=== PATIENT | female | born 1985 | race Caucasian/White ===

== ENCOUNTER 2024-03-03 05:59 | Emergency (ER) | payer OTHER ==
[~2024-03-03] VITALS: Ht 157.5 cm; Wt 79.8 kg
[2024-03-03 07:41] LABS: BASO % 0.3 % (0.0-1.0); EOS # 0.1 10^3/uL (0.0-0.5); EOS % 0.6 % (0.0-3.0); HEMATOCRIT 40.6 % (36.0-47.0); HEMOGLOBIN 14.5 g/dl (12.0-15.5); LYMPH # 1.5 10^3/uL (1.5-5.0); LYMPH % 18.8 % (24.0-44.0); MEAN CORPUSCULAR HEMOGLOBIN 32.2 pg (27.0-33.0); MEAN CORPUSCULAR HGB CONC 35.7 g/dl (32.0-36.5); MEAN CORPUSCULAR VOLUME 90.2 fl (80.0-96.0); MONO # 0.4 10^3/uL (0.0-0.8); MONO % 4.8 % (2.0-8.0); NEUTROPHILS % 75.1 % (36.0-66.0); PLATELET COUNT, AUTOMATED 385 10^3/uL (150-450)
[2024-03-03] MEDS: diphenhydrAMINE 25MG CAP PO ONE (08:07)
[2024-03-03 08:12] LABS: HCG, SERUM QUALITATIVE NEGATIVE (NEGATIVE)
[2024-03-03 08:15] LABS: ALBUMIN 3.9 G/DL (3.2-5.2); ALKALINE PHOSPHATASE 152 U/L (46-116); ALT/SGPT 16 U/L (7.0-40); AST/SGOT 18 U/L (<34); BILIRUBIN,DIRECT 0.2 MG/DL (<0.4); BILIRUBIN,TOTAL 0.9 MG/DL (0.3-1.2); BLOOD UREA NITROGEN < 5 MG/DL (9-23); CALCIUM LEVEL 9.7 MG/DL (8.5-10.1); CARBON DIOXIDE LEVEL 22 MMOL/L (20-31); CHLORIDE LEVEL 108 MMOL/L (98-107); CK-MB VALUE MASS < 1.0 NG/ML (<3.6); CPK CREATINE PHOSPHOKINASE 81 U/L (34-145); CREATININE FOR GFR 0.58 MG/DL (0.55-1.30); GLOMERULAR FILTRATION RATE > 60.0 (>60); GLUCOSE, FASTING 106 MG/DL (60-100); MB/CK RELATIVE INDEX 1.23 (< OR =4); POTASSIUM SERUM 3.9 MMOL/L (3.5-5.1); SODIUM LEVEL 138 MMOL/L (136-145); THYROID STIMULATING HORMONE 5.853 uIU/ML (0.55-4.78); TOTAL PROTEIN 7.8 G/DL (5.7-8.2)
[2024-03-03 09:22] LABS: CK-MB VALUE MASS < 1.0 NG/ML (<3.6)
[2024-03-03 09:25] LABS: CPK CREATINE PHOSPHOKINASE 86 U/L (34-145); MB/CK RELATIVE INDEX 1.16 (< OR =4)
[2024-03-03] MEDS ORDERED: VIST25CA PO (10:56)
[2024-03-03 11:30] VITALS: BP 129/89; TEMP 98.5; O2SAT 98
== END 2024-03-03 11:38 | disposition home or self-care (01) ==
LOC: M ED 05:59
DX: R00.2 Palpitations (principal); F41.0 Panic disorder [episodic paroxysmal anxiety]; I25.2 Old myocardial infarction; F12.10 Cannabis abuse, uncomplicated; F10.10 Alcohol abuse, uncomplicated; F17.200 Nicotine dependence, unspecified, uncomplicated; Z86.79 Personal history of other diseases of the circulatory system; Z79.899 Other long term (current) drug therapy

== ENCOUNTER 2024-03-17 14:35 | Emergency (ER) | payer OTHER ==
[~2024-03-17] VITALS: Ht 157.5 cm; Wt 80.7 kg
[~2024-03-17 14:35] MED LIST: VIST25CA PO
[2024-03-17 14:37] VITALS: BP 158/96; TEMP 95.9; O2SAT 100
[2024-03-17] MEDS ORDERED: VENL150T24 (14:44)
[2024-03-17] MEDS ORDERED: PROP20TA72 (14:44)
[2024-03-17] MEDS ORDERED: AUGM500T34 PO (14:44)
[2024-03-17] MEDS ORDERED: ONDANSETRON 4MG ORAL DISINTEGRATING TAB PO ONE (15:05)
[2024-03-17] MEDS: diphenhydrAMINE 50MG/ML VIAL IV STA (15:36)
[2024-03-17] MEDS: HALOPERIDOL LACTATE 5MG/ML VIAL IV STA (15:36)
[2024-03-17 15:37] LABS: BASO % 0.2 % (0.0-1.0); EOS % 0.1 % (0.0-3.0); HEMATOCRIT 43.3 % (36.0-47.0); HEMOGLOBIN 15.5 g/dl (12.0-15.5); LYMPH # 1.1 10^3/uL (1.5-5.0); LYMPH % 7.3 % (24.0-44.0); MEAN CORPUSCULAR HEMOGLOBIN 32.2 pg (27.0-33.0); MEAN CORPUSCULAR HGB CONC 35.8 g/dl (32.0-36.5); MEAN CORPUSCULAR VOLUME 89.8 fl (80.0-96.0); MONO # 0.2 10^3/uL (0.0-0.8); MONO % 1.5 % (2.0-8.0); NEUTROPHILS % 90.4 % (36.0-66.0); PLATELET COUNT, AUTOMATED 391 10^3/uL (150-450); RED BLOOD COUNT 4.82 10^6/uL (4.00-5.40); WHITE BLOOD COUNT 14.4 10^3/uL (4.0-10.0)
[2024-03-17 16:14] LABS: ALBUMIN 4.1 G/DL (3.2-5.2); BILIRUBIN,DIRECT 0.3 MG/DL (<0.4); BILIRUBIN,TOTAL 1.3 MG/DL (0.3-1.2); TOTAL PROTEIN 8.1 G/DL (5.7-8.2)
[2024-03-17 16:22] LABS: HCG, SERUM QUALITATIVE NEGATIVE (NEGATIVE)
[2024-03-17] MEDS ORDERED: PROM12.56 PO (17:27)
[2024-03-17] MEDS ORDERED: CALCIUM CARBONATE 500 MG CHEW U/D PO ONE (17:35)
== END 2024-03-17 17:42 | disposition home or self-care (01) ==
LOC: M ED 14:35
DX: F12.188 Cannabis abuse with other cannabis-induced disorder (principal); I50.9 Heart failure, unspecified; F31.9 Bipolar disorder, unspecified; F41.1 Generalized anxiety disorder; F17.200 Nicotine dependence, unspecified, uncomplicated
CPT/HCPCS: 80047; 80076; 83690; 84703; 85025; 87486; 87581; 87633; 87798; 93005; 96374; 96375; 99284; J1200; J1630